=== PATIENT | female | born 1960 | race Hispanic/Latino ===

== ENCOUNTER 2016-10-17 08:22 | Outpatient (CLI) | payer MEDICARE ==
[2016-10-17 09:12] LABS: #Eosinphils 0.1 thou/uL (0.0-0.7); #Monocytes 0.2 thou/uL (0.11-0.59); #Neutrophils 2.5 thou/uL (1.40-6.50); %Basophils 1.3 % (0.0-1.0); %Eosinophils 2.4 % (0.0-10.0); %Lymphocytes 26.7 % (21.0-51.0); %Neutrophils 64.8 % (42.0-75.0); Hemoglobin 13.1 g/dL (12.0-16.0); Mean Corpuscular HGB CONC 34.2 g/dL (32.0-36.0); Mean Corpuscular Hemoglobin 29.1 pg (27.0-31.0); Mean Corpuscular Volume 85.1 fl (81.0-99.0); Mean Platelet Volume 7.1 fL (7.4-10.4); Platelet Count 240 thou/uL (130-400); RBC Distribution Width 11.7 % (11.5-14.5); White Blood Cell (WBC) Count 3.9 thou/uL (4.8-10.8)
[2016-10-17 09:30] LABS: Hemoglobin A1c 5.5 % (4.0-6.0)
[2016-10-17 09:40] LABS: ALT (SGPT) 10 U/L (0-55); AST (SGOT) 13 U/L (5-34); Albumin 4.3 g/dL (3.5-5.0); Alkaline Phosphatase 70 U/L (40-150); Anion Gap 13 mmol/L (10-20); BUN (Urea Nitrogen) 13 mg/dL (9.8-20.1); Bilirubin, Total 0.6 mg/dL (0.2-1.2); Calc. Creatinine Clearance 0 mL/min (70-130); Calcium 9.4 mg/dL (7.8-10.44); Carbon Dioxide 29 mmol/L (22-29); Cardiac Risk 5.2 (Less than 4.5); Chloride 102 mmol/L (98-107); Cholesterol 201 mg/dL (< 200 Desired); Estimated GFR-MDRD 86; Globulin 2.8 g/dL (2.4-3.5); Glucose 115 mg/dL (70-105); HDL Cholesterol 39 mg/dL (>60 Neg Risk); LDL Cholesterol, Calculated 125 mg/dL; Potassium 3.9 mmol/L (3.5-5.1); Protein, Total 7.1 g/dL (6.0-8.3); Sodium 140 mmol/L (136-145); Triglycerides 186 mg/dL (Less than 150)
[2016-10-17 09:50] LABS: Free T4 (Free Thyroxine) 1.04 ng/dL (0.70-1.48); Thyroid Stimulating Hormone 1.9493 uIU/mL (0.35-4.94)
== END 2016-10-17 08:23 | disposition home or self-care (01) ==
LOC: MADLABBHPM 08:22
PROVIDERS: ATTEND Family Medicine
DX: I10 Essential (primary) hypertension (principal); F51.04 Psychophysiologic insomnia; Z86.39 Personal history of other endocrine, nutritional and metabolic disease
CPT/HCPCS: 36415; 80053; 80061; 83036; 84439; 84443; 85025

== ENCOUNTER 2016-11-28 08:04 | Outpatient (CLI) | payer MEDICARE ==
[2016-11-28 09:16] LABS: Band 3 % (5-11); Lymphocytes 19 % (21-51); MDiff Complete? YES; Monocytes 8 % (0-10); Neutrophil 68 % (42-75); Reactive Lymphocytes 2 % (0-10)
[2016-11-28 09:17] LABS: PLT Morphology Comment Appears Adequate; RBC Morphology Normal
[2016-11-28 09:23] LABS: Hemoglobin 12.8 g/dL (12.0-16.0); White Blood Cell (WBC) Count 4.1 thou/uL (4.8-10.8)
[2016-11-28 09:24] LABS: Mean Corpuscular HGB CONC 33.1 g/dL (32.0-36.0); Mean Corpuscular Hemoglobin 28.4 pg (27.0-31.0); Mean Platelet Volume 6.7 fL (7.4-10.4); Platelet Count 214 thou/uL (130-400); RBC Distribution Width 12.2 % (11.5-14.5)
== END 2016-11-28 08:05 ==
LOC: MADLABBHPM 08:04
PROVIDERS: ATTEND Family Medicine
DX: D72.819 Decreased white blood cell count, unspecified (principal)
CPT/HCPCS: 36415; 85007; 85027; 85060

== ENCOUNTER 2016-12-09 09:01 | Emergency (ER) | payer MEDICARE ==
[~2016-12-09 09:01] MED LIST: Sodium Chloride 0.9% 1,000 ML BAG ONE
[2016-12-09] MEDS ORDERED: Ondansetron HCl/PF 4 MG/2 ML Vial ONE (09:15)
[2016-12-09 09:43] LABS: #Basophils 0.1 thou/uL (0.0-0.2); #Lymphocytes 0.7 thou/uL (1.20-3.40); #Monocytes 0.3 thou/uL (0.11-0.59); %Eosinophils 0.2 % (0.0-10.0); %Lymphocytes 24.3 % (21.0-51.0); %Monocytes 9.2 % (0.0-10.0); %Neutrophils 64.3 % (42.0-75.0); Hemoglobin 13.2 g/dL (12.0-16.0); Mean Corpuscular HGB CONC 34.5 g/dL (32.0-36.0); Mean Corpuscular Hemoglobin 29.3 pg (27.0-31.0); Mean Corpuscular Volume 85.2 fl (81.0-99.0); Mean Platelet Volume 7.8 fL (7.4-10.4); Platelet Count 186 thou/uL (130-400); RBC Distribution Width 11.5 % (11.5-14.5); White Blood Cell (WBC) Count 3.1 thou/uL (4.8-10.8)
[2016-12-09] MEDS ORDERED: Oseltamivir 75 MG CAP ONE (09:43)
[2016-12-09 10:04] LABS: ALT (SGPT) 15 U/L (0-55); AST (SGOT) 22 U/L (5-34); Albumin 4.3 g/dL (3.5-5.0); Alkaline Phosphatase 62 U/L (40-150); Anion Gap 17 mmol/L (10-20); BUN (Urea Nitrogen) 12 mg/dL (9.8-20.1); Bilirubin, Total 0.7 mg/dL (0.2-1.2); Calc. Creatinine Clearance 0 mL/min (70-130); Calcium 8.9 mg/dL (7.8-10.44); Carbon Dioxide 24 mmol/L (22-29); Chloride 102 mmol/L (98-107); Estimated GFR-MDRD 78; Globulin 2.9 g/dL (2.4-3.5); Glucose 142 mg/dL (70-105); Potassium 3.5 mmol/L (3.5-5.1); Protein, Total 7.2 g/dL (6.0-8.3); Sodium 139 mmol/L (136-145)
== END 2016-12-09 11:15 | disposition home or self-care (01) ==
LOC: MADERS 09:01
DX: J10.1 Influenza due to other identified influenza virus with other respiratory manifestations (principal); E86.0 Dehydration; I10 Essential (primary) hypertension; Z79.899 Other long term (current) drug therapy
CPT/HCPCS: 80053; 85025; 96361; 96374; J2405; J7050

== ENCOUNTER 2017-03-12 08:29 | Outpatient (CLI) | payer MEDICARE ==
[2017-03-12 08:47] LABS: #Eosinphils 0.1 thou/uL (0.0-0.7); #Lymphocytes 1.1 thou/uL (1.20-3.40); #Monocytes 0.2 thou/uL (0.11-0.59); #Neutrophils 1.8 thou/uL (1.40-6.50); %Basophils 1.4 % (0.0-1.0); %Eosinophils 2.7 % (0.0-10.0); %Lymphocytes 33.2 % (21.0-51.0); %Monocytes 6.8 % (0.0-10.0); %Neutrophils 55.9 % (42.0-75.0); Hemoglobin 12.8 g/dL (12.0-16.0); Mean Corpuscular HGB CONC 33.7 g/dL (32.0-36.0); Mean Corpuscular Hemoglobin 28.9 pg (27.0-31.0); Mean Corpuscular Volume 85.7 fl (81.0-99.0); Mean Platelet Volume 6.7 fL (7.4-10.4); Platelet Count 202 thou/uL (130-400); RBC Distribution Width 11.8 % (11.5-14.5); Red Blood Cell (RBC) Count 4.42 mill/uL (4.20-5.40); White Blood Cell (WBC) Count 3.3 thou/uL (4.8-10.8)
[2017-03-12 09:00] LABS: Hemoglobin A1c 5.6 % (4.0-6.0)
[2017-03-12 09:20] LABS: ALT (SGPT) 11 U/L (8-55); AST (SGOT) 12 U/L (5-34); Alkaline Phosphatase 70 U/L (40-150); Anion Gap 12 mmol/L (10-20); BUN (Urea Nitrogen) 12 mg/dL (9.8-20.1); Bilirubin, Total 0.7 mg/dL (0.2-1.2); Calc. Creatinine Clearance 0 mL/min (70-130); Calcium 9.1 mg/dL (7.8-10.44); Carbon Dioxide 28 mmol/L (22-29); Chloride 103 mmol/L (98-107); Cholesterol 201 mg/dl (< 200 Desired); Estimated GFR-MDRD 87; Globulin 3.3 g/dL (2.4-3.5); Glucose 131 mg/dL (70-105); HDL Cholesterol 40 mg/dL (>60 Neg Risk); LDL Cholesterol, Calculated 120 mg/dL; Potassium 3.9 mmol/L (3.5-5.1); Protein, Total 7.3 g/dL (6.0-8.3); Sodium 139 mmol/L (136-145); Triglycerides 206 mg/dL (Less than 150)
== END 2017-03-12 08:30 | disposition home or self-care (01) ==
LOC: MADLABBHPM 08:29
PROVIDERS: ATTEND Family Medicine
DX: D72.819 Decreased white blood cell count, unspecified (principal); E78.1 Pure hyperglyceridemia; Z86.39 Personal history of other endocrine, nutritional and metabolic disease
CPT/HCPCS: 36415; 80053; 80061; 83036; 85025

== ENCOUNTER 2017-06-27 08:33 | Outpatient (CLI) | payer MEDICARE ==
[2017-06-27 09:34] LABS: Cardiac Risk 5.3 (Less than 4.5)
[2017-06-27 10:43] LABS: Eosinophils 4 % (0-10); Hemoglobin 12.8 g/dL (12.0-16.0); Lymphocytes 10 % (21-51); MDiff Complete? YES; Mean Corpuscular HGB CONC 32.5 g/dL (32.0-36.0); Mean Corpuscular Hemoglobin 27.6 pg (27.0-31.0); Mean Corpuscular Volume 85.1 fl (81.0-99.0); Mean Platelet Volume 6.5 fL (7.4-10.4); Monocytes 6 % (0-10); Neutrophil 70 % (42-75); PLT Morphology Comment Appears Adequate; Platelet Count 217 thou/uL (130-400); RBC Distribution Width 11.8 % (11.5-14.5); RBC Morphology Normal; Reactive Lymphocytes 10 % (0-10); Red Blood Cell (RBC) Count 4.62 mill/uL (4.20-5.40); White Blood Cell (WBC) Count 3.6 thou/uL (4.8-10.8)
== END 2017-06-27 08:34 | disposition home or self-care (01) ==
LOC: MADLABBHPM 08:33
PROVIDERS: ATTEND Family Medicine
DX: D72.819 Decreased white blood cell count, unspecified (principal); Z86.39 Personal history of other endocrine, nutritional and metabolic disease
CPT/HCPCS: 36415; 80061; 83036; 85007; 85027

== ENCOUNTER 2020-04-04 12:17 | Outpatient (CLI) | payer MEDICARE ==
[2020-04-04 13:21] LABS: ALT (SGPT) 15 U/L (8-55); AST (SGOT) 14 U/L (5-34); Albumin 4.4 g/dL (3.4-4.8); Alkaline Phosphatase 77 U/L (40-110); Anion Gap 14 mmol/L (10-20); BUN (Urea Nitrogen) 11 mg/dL (9.8-20.1); Bilirubin, Total 0.4 mg/dL (0.2-1.2); Calc. Creatinine Clearance 0 mL/min (70-130); Calcium 9.8 mg/dL (7.8-10.44); Carbon Dioxide 29 mmol/L (23-31); Chloride 101 mmol/L (98-107); Estimated GFR-MDRD 76; Globulin 3.3 g/dL (2.4-3.5); Glucose 178 mg/dL (80-115); Potassium 4.3 mmol/L (3.5-5.1); Protein, Total 7.7 g/dL (6.0-8.3); Sodium 140 mmol/L (136-145)
--- NOTE | 2020-04-04 13:33 | RAD ---
Exam:Left tibia fibula 2 views HISTORY: Chronic pain, without trauma COMPARISON: 03/18/2015 FINDINGS: There appears to be bony remodeling involving the proximal to mid left tibial diaphysis. Fi ndings may be due to remote trauma or infection. Correlate clinically. There appears to be increased density and swelling involving the soft tissues. There is no appreciable change when compar ed to the previous exam. Stable surgical clips. IMPRESSION: No significant interval change. Presumed chronic findings involving the left tibia.
--- NOTE | 2020-04-04 13:39 | RAD ---
XR Tib Fib Rt Leg 2 View HISTORY: Chronic right leg pain COMPARISON: None. FINDINGS: The right tibia and fibula are intact. There are degenerative changes in the knee joint. Posterior an d plantar calcaneal spurs are present.
== END 2020-04-04 12:18 | disposition home or self-care (01) ==
LOC: MADRAD 12:17
PROVIDERS: ATTEND Family Medicine
DX: M79.604 Pain in right leg (principal); M79.605 Pain in left leg
CPT/HCPCS: 36415; 80053; 85652

== ENCOUNTER 2021-02-01 10:08 | Emergency (ER) | payer MEDICARE ==
[2021-02-01] MEDS ORDERED: Morphine 4 MG/ML VIAL ONE (10:36)
== END 2021-02-01 11:37 | disposition home or self-care (01) ==
LOC: MADERS 10:08
DX: S22.32XA Fracture of one rib, left side, initial encounter for closed fracture (principal); I10 Essential (primary) hypertension; Z79.899 Other long term (current) drug therapy; W18.30XA Fall on same level, unspecified, initial encounter
CPT/HCPCS: 96372; J2270

== ENCOUNTER 2021-03-16 08:01 | Outpatient (CLI) | payer MEDICARE ==
[2021-03-16 09:02] LABS: ALT (SGPT) 15 U/L (8-55); AST (SGOT) 14 U/L (5-34); Albumin 4.1 g/dL (3.4-4.8); Alkaline Phosphatase 71 U/L (40-110); Anion Gap 15 mmol/L (10-20); BUN (Urea Nitrogen) 13 mg/dL (9.8-20.1); Bilirubin, Total 0.7 mg/dL (0.2-1.2); Calc. Creatinine Clearance 0 mL/min (70-130); Calcium 9.3 mg/dL (7.8-10.44); Carbon Dioxide 25 mmol/L (23-31); Cardiac Risk 5.4 (Less than 4.5); Chloride 104 mmol/L (98-107); Cholesterol 185 mg/dl (< 200 Desired); Glucose 154 mg/dL (80-115); HDL Cholesterol 34 mg/dL (>60 Neg Risk); LDL Cholesterol, Calculated 110 mg/dL; Potassium 4.3 mmol/L (3.5-5.1); Protein, Total 7.1 g/dL (5.8-8.1); Sodium 140 mmol/L (136-145); Triglycerides 204 mg/dL (Less than 150)
[2021-03-16 16:50] LABS: Hemoglobin A1c 6.9 % (4.0-6.0)
== END 2021-03-16 08:02 | disposition home or self-care (01) ==
LOC: MADLAB 08:01 → MADRAD 08:02
PROVIDERS: ATTEND Family Medicine
DX: S22.42XS Multiple fractures of ribs, left side, sequela (principal); E78.1 Pure hyperglyceridemia; E11.65 Type 2 diabetes mellitus with hyperglycemia; W19.XXXA Unspecified fall, initial encounter
CPT/HCPCS: 36415; 80053; 80061; 83036

== ENCOUNTER 2021-03-23 11:31 | Outpatient (CLI) | payer MEDICARE | END 2021-03-23 11:32 | disposition home or self-care (01) | LOC: MADRAD 11:31 | PROVIDERS: ATTEND Family Medicine | DX: M25.559 Pain in unspecified hip (principal); W19.XXXA Unspecified fall, initial encounter | CPT/HCPCS: 72170 ==

== ENCOUNTER 2021-09-25 14:05 | Emergency (ER) | payer MEDICARE ==
[~2021-09-25 14:05] MED LIST changes: +Iopamidol 370 76% 125 ML VIAL FS ONE; -Sodium Chloride 0.9% 1,000 ML BAG ONE
[2021-09-25] MEDS ORDERED: Ibuprofen 800 MG TAB ONE (14:55)
[2021-09-25] MEDS ORDERED: Ondansetron ODT 4 MG TAB ONE (14:55)
[2021-09-25 15:11] LABS: #Lymphocytes 0.5 thou/uL (1.20-3.40); #Monocytes 0.3 thou/uL (0.11-0.59); %Basophils 0.4 % (0.0-1.0); %Eosinophils 0.1 % (0.0-10.0); %Lymphocytes 5.1 % (21.0-51.0); %Monocytes 3.2 % (0.0-10.0); %Neutrophils 91.2 % (42.0-75.0); Hemoglobin 11.8 g/dL (12.0-16.0); Mean Corpuscular HGB CONC 33.8 g/dL (32.0-36.0); Mean Corpuscular Hemoglobin 28.6 pg (27.0-31.0); Mean Corpuscular Volume 84.8 fL (78.0-98.0); Mean Platelet Volume 6.2 fL (7.4-10.4); Platelet Count 184 thou/uL (130-400); RBC Distribution Width 10.9 % (11.5-14.5); Red Blood Cell (RBC) Count 4.13 mill/uL (4.20-5.40); White Blood Cell (WBC) Count 8.8 thou/uL (4.8-10.8)
[2021-09-25 15:23] LABS: ALT (SGPT) 13 U/L (8-55); AST (SGOT) 14 U/L (5-34); Albumin 4.1 g/dL (3.4-4.8); Alkaline Phosphatase 70 U/L (40-110); Anion Gap 13 mmol/L (10-20); BUN (Urea Nitrogen) 10 mg/dL (9.8-20.1); Bilirubin, Total 1.9 mg/dL (0.2-1.2); Calc. Creatinine Clearance 0 mL/min (70-130); Calcium 9.7 mg/dL (7.8-10.44); Carbon Dioxide 27 mmol/L (23-31); Chloride 101 mmol/L (98-107); Globulin 3.2 g/dL (2.4-3.5); Glucose 141 mg/dL (80-115); Protein, Total 7.3 g/dL (5.8-8.1); Sodium 137 mmol/L (136-145)
[2021-09-25 15:24] LABS: CRP (Inflammatory) 10.17 mg/dL (= or < 0.5)
[2021-09-25 16:26] LABS: SARS-CoV-2 NAA Rapid Test Not Detected (NotDetected)
[2021-09-25] MEDS ORDERED: cefTRIAXone\\ROCEPHIN 2 GM VIAL ONE (17:04)
[2021-09-25] MEDS ORDERED: Sodium Chloride 0.9% 100 ML ONE (17:04)
== END 2021-09-25 17:30 | disposition home or self-care (01) ==
LOC: MADERS 14:05
DX: J20.9 Acute bronchitis, unspecified (principal); R00.0 Tachycardia, unspecified; I10 Essential (primary) hypertension; M86.60 Other chronic osteomyelitis, unspecified site; Z20.822 Contact with and (suspected) exposure to COVID-19; Z79.84 Long term (current) use of oral hypoglycemic drugs; Z79.899 Other long term (current) drug therapy
CPT/HCPCS: 0240U; 71045; 71275; 80053; 82550; 83605; 84484; 85025; 85379; 86140; 93005; 96365; J0696; J3490; Q0162; Q9967

== ENCOUNTER 2022-05-27 09:16 | Outpatient (CLI) | payer MEDICARE ==
[2022-05-27 09:49] LABS: ALT (SGPT) 19 U/L (8-55); AST (SGOT) 15 U/L (5-34); Alkaline Phosphatase 67 U/L (40-110); Anion Gap 14 mmol/L (10-20); BUN (Urea Nitrogen) 14 mg/dL (9.8-20.1); Bilirubin, Total 0.8 mg/dL (0.2-1.2); Calc. Creatinine Clearance 0 mL/min (70-130); Calcium 9.1 mg/dL (7.8-10.44); Carbon Dioxide 28 mmol/L (23-31); Cardiac Risk 2.8 (Less than 4.5); Chloride 106 mmol/L (98-107); Cholesterol 102 mg/dl (< 200 Desired); Estimated GFR 98; Globulin 2.6 g/dL (2.4-3.5); Glucose 159 mg/dL (80-115); HDL Cholesterol 36 mg/dL (>60 Neg Risk); LDL Cholesterol, Calculated 48 mg/dL; Potassium 4.8 mmol/L (3.5-5.1); Protein, Total 6.6 g/dL (5.8-8.1); Sodium 143 mmol/L (136-145); Triglycerides 92 mg/dL (Less than 150)
[2022-05-27 16:18] LABS: Hemoglobin A1c 6.3 % (4.0-6.0)
== END 2022-05-27 09:17 | disposition home or self-care (01) ==
LOC: MADLABBHPM 09:16 → MADLAB 09:17
PROVIDERS: ATTEND Family Medicine
DX: E78.2 Mixed hyperlipidemia (principal)
CPT/HCPCS: 80053; 80061; 83036

== ENCOUNTER 2022-07-22 09:28 | Outpatient (CLI) | payer MEDICARE | END 2022-07-22 09:29 | disposition home or self-care (01) | LOC: MADRAD 09:28 | PROVIDERS: ATTEND Family Medicine | DX: M25.511 Pain in right shoulder (principal); M89.8X1 Other specified disorders of bone, shoulder ==

== ENCOUNTER 2022-08-12 12:34 | Outpatient (CLI) | payer MEDICARE | END 2022-08-12 12:35 | disposition home or self-care (01) | LOC: MADLAB 12:34 | PROVIDERS: ATTEND Family Medicine | DX: R50.9 Fever, unspecified (principal); R05.3 Chronic cough; J10.1 Influenza due to other identified influenza virus with other respiratory manifestations | CPT/HCPCS: 71046 ==

== ENCOUNTER 2022-08-27 17:49 | Emergency (ER) | payer MEDICARE ==
[2022-08-27] MEDS ORDERED: Morphine 4 MG/ML VIAL ONE (18:58)
[2022-08-27 19:19] LABS: Bilirubin Negative (Negative); Blood, Urine Negative (Negative); Clarity Clear (Clear); Glucose, Urine (Dipstick) Negative (Negative); Ketone, Urine Negative (Negative); Leukocyte Trace (Negative); Nitrite Negative (Negative); Protein, Urine (Dipstick) Negative (Neg-Trace); Urobilinogen 0.2 mg/dL (Less than 2); pH, Urine 6.5 (5.0-9.0)
[2022-08-27 19:23] LABS: RBC/HPF 0-3 HPF (0-3); Squamous Epithelial 0-3 HPF (0-3); WBC/HPF 0-3 HPF (0-3)
[2022-08-27 19:24] LABS: Bacteria/HPF Rare-Few HPF (None Seen)
== END 2022-08-27 20:10 | disposition home or self-care (01) ==
LOC: MADERS 17:49
DX: S83.92XA Sprain of unspecified site of left knee, initial encounter (principal); S70.02XA Contusion of left hip, initial encounter; S40.011A Contusion of right shoulder, initial encounter; S09.90XA Unspecified injury of head, initial encounter; I10 Essential (primary) hypertension; W10.9XXA Fall (on) (from) unspecified stairs and steps, initial encounter; Z79.899 Other long term (current) drug therapy
CPT/HCPCS: 70450; 72125; 81003; 81015; 96372; J2270

== ENCOUNTER 2022-10-25 09:10 | Outpatient (CLI) | payer MEDICARE | END 2022-10-25 09:11 | disposition home or self-care (01) | LOC: MADRAD 09:10 | PROVIDERS: ATTEND Internal Medicine Rheumatology | DX: M54.2 Cervicalgia (principal); M54.50 Low back pain, unspecified; M06.4 Inflammatory polyarthropathy; M47.812 Spondylosis without myelopathy or radiculopathy, cervical region; M19.011 Primary osteoarthritis, right shoulder; M19.012 Primary osteoarthritis, left shoulder | CPT/HCPCS: 71130; 72040; 72170 ==

== ENCOUNTER 2023-04-30 10:34 | Outpatient (CLI) | payer MEDICARE ==
[2023-04-30 12:07] LABS: ALT (SGPT) 17 U/L (8-55); AST (SGOT) 14 U/L (5-34); Albumin 4.3 g/dL (3.4-4.8); Alkaline Phosphatase 65 U/L (40-110); Anion Gap 12 mmol/L (10-20); BUN (Urea Nitrogen) 16 mg/dL (9.8-20.1); Bilirubin, Total 1.1 mg/dL (0.2-1.2); Calc. Creatinine Clearance 0 mL/min (70-130); Calcium 9.5 mg/dL (7.8-10.44); Carbon Dioxide 29 mmol/L (23-31); Cardiac Risk 2.9 (Less than 4.5); Chloride 104 mmol/L (98-107); Cholesterol 113 mg/dl (< 200 Desired); Estimated GFR 89; Globulin 2.4 g/dL (2.4-3.5); Glucose 143 mg/dL (80-115); HDL Cholesterol 39 mg/dL (>60 Neg Risk); LDL Cholesterol, Calculated 48 mg/dL; Potassium 3.8 mmol/L (3.5-5.1); Protein, Total 6.7 g/dL (5.8-8.1); Sodium 141 mmol/L (136-145); Triglycerides 130 mg/dL (Less than 150)
[2023-04-30 16:18] LABS: Hemoglobin A1c 8.2 % (4.0-6.0)
[2023-04-30 16:46] LABS: Creatinine, Urine 99.89 mg/dL (47-110); Microalbumin Urine 1.7 mg/dL (0.5-50.0)
== END 2023-04-30 10:35 | disposition home or self-care (01) ==
LOC: MADLABBHPM 10:34
PROVIDERS: ATTEND Family Medicine
DX: E11.65 Type 2 diabetes mellitus with hyperglycemia (principal); E78.2 Mixed hyperlipidemia
CPT/HCPCS: 80053; 80061; 82043; 83036; 84443

== ENCOUNTER 2024-03-22 15:25 | Emergency (ER) | payer MEDICARE ==
[2024-03-22 16:22] LABS: #Eosinphils 0.1 thou/uL (0.0-0.7); #Lymphocytes 1.5 thou/uL (1.20-3.40); #Monocytes 0.3 thou/uL (0.11-0.59); #Neutrophils 3.6 thou/uL (1.40-6.50); %Basophils 0.9 % (0.0-1.0); %Eosinophils 2.2 % (0.0-10.0); %Neutrophils 63.9 % (42.0-75.0); Hematocrit 37.6 % (36.0-47.0); Mean Corpuscular HGB CONC 31.9 g/dL (32.0-36.0); Mean Corpuscular Hemoglobin 27.7 pg (27.0-31.0); Mean Corpuscular Volume 86.8 fl (78.0-98.0); Mean Platelet Volume 6.2 fL (7.4-10.4); Platelet Count 254 10x3/uL (130-400); RBC Distribution Width 11.5 % (11.5-14.5); Red Blood Cell (RBC) Count 4.33 mill/uL (4.20-5.40); White Blood Cell (WBC) Count 5.6 10x3/uL (4.8-10.8)
[2024-03-22 16:36] LABS: Anion Gap 16 mmol/L (10-20); BUN (Urea Nitrogen) 16 mg/dL (9.8-20.1); Calc. Creatinine Clearance 0 mL/min (70-130); Calcium 9.8 mg/dL (7.8-10.44); Carbon Dioxide 25 mmol/L (23-31); Chloride 104 mmol/L (98-107); Estimated GFR 96; Glucose 93 mg/dL (80-115); Potassium 4.2 mmol/L (3.5-5.1); Sodium 141 mmol/L (136-145)
[2024-03-22] MEDS ORDERED: cefTRIAXone (ROCEPHIN) 1 GM VIAL ONE (17:10)
[2024-03-22] MEDS ORDERED: Gabapentin 100 MG CAP ONE (17:10)
[2024-03-22] MEDS ORDERED: Lidocaine 1% PF 5 ML VIAL ONE (17:10)
== END 2024-03-22 17:37 | disposition home or self-care (01) ==
LOC: MADERS 15:25
DX: L03.116 Cellulitis of left lower limb (principal); E11.42 Type 2 diabetes mellitus with diabetic polyneuropathy; I10 Essential (primary) hypertension
CPT/HCPCS: 73700; 80048; 85025; 86140; 96372; 99284; J0696; 36415